=== PATIENT | female | born 2000 | race Caucasian/White ===

== ENCOUNTER 2019-11-02 18:35 | Emergency (ER) | payer OTHER ==
[~2019-11-02] VITALS: Ht 144.8 cm; Wt 54.3 kg
[2019-11-02] MEDS ORDERED: PROBCAP14 PO (18:42)
[2019-11-02] MEDS ORDERED: PANTOPRAZOLE 40MG VIAL (C9113 PER 1) IV ONE (19:30)
[2019-11-02 19:52] LABS: BASO % 0.2 % (0.0-1.0); EOS % 0.5 % (0.0-3.0); HEMATOCRIT 39.5 % (36.0-47.0); HEMOGLOBIN 13.9 g/dl (12.0-15.5); LYMPH # 2.3 10^3/uL (1.5-5.0); LYMPH % 54.5 % (24.0-44.0); MEAN CORPUSCULAR HGB CONC 35.2 g/dl (32.0-36.5); MEAN CORPUSCULAR VOLUME 85.3 fl (80.0-96.0); MONO # 0.4 10^3/uL (0.0-0.8); MONO % 10.4 % (0.0-5.0); NEUTROPHILS # 1.4 10^3/uL (1.5-8.5); NEUTROPHILS % 34.4 % (36.0-66.0); PLATELET COUNT, AUTOMATED 228 10^3/uL (150-450); RED BLOOD COUNT 4.63 10^6/uL (4.00-5.40); WHITE BLOOD COUNT 4.1 10^3/uL (4.0-10.0)
[2019-11-02 20:22] LABS: ALBUMIN 4.2 GM/DL (3.2-5.2); ALT/SGPT 26 U/L (12-78); BILIRUBIN,DIRECT 0.1 MG/DL (0.0-0.2); BILIRUBIN,TOTAL 0.3 MG/DL (0.2-1.0); CK-MB VALUE MASS < 1.0 NG/ML (<3.6); CPK CREATINE PHOSPHOKINASE 98 U/L (26-192); LIPASE 96 U/L (73-393); MB/CK RELATIVE INDEX 1.02 (< OR =4); TOTAL PROTEIN 8.4 GM/DL (6.4-8.2); TROPONIN I < 0.02 NG/ML (< 0.10)
[2019-11-02] MEDS ORDERED: BACT800T5 PO (21:26)
[2019-11-02] MEDS ORDERED: PROT1TAB2 PO (21:26)
[2019-11-02 21:32] VITALS: BP 125/86
--- NOTE | 2019-11-03 01:26 | REP ---
Clinical: Lower chest and abdominal pain . Comparison: None . Technique: PA and lateral. Findings: The mediastinum and cardiac silhouette are normal. The lung pulido are clear and without acute consolidation, effusion, or pneumothorax. The skeletal structures are intact and normal. Impression: 1. No acute cardiopulmonary process. Electronically Signed by Suraj Howell MD 11/03/2019 01:18 A
--- NOTE | 2019-11-03 21:27 | ECGEPIP ---
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
== END 2019-11-02 21:35 | disposition home or self-care (01) ==
LOC: M ED 18:35
DX: K21.9 Gastro-esophageal reflux disease without esophagitis (principal); N39.0 Urinary tract infection, site not specified; R11.0 Nausea; D64.9 Anemia, unspecified; M08.00 Unspecified juvenile rheumatoid arthritis of unspecified site; F17.290 Nicotine dependence, other tobacco product, uncomplicated; Z82.49 Family history of ischemic heart disease and other diseases of the circulatory system; Z79.3 Long term (current) use of hormonal contraceptives
CPT/HCPCS: 71046; 80047; 80076; 81001; 82550; 82553; 83690; 84484; 84702; 85025; 85379; 87088; 87186; 93005; 96374; 99284; C9113